=== PATIENT | male | born 1945 | race Caucasian/White ===

== ENCOUNTER 2016-09-09 07:32 | Outpatient (CLI) | payer MEDICARE, OTHER | END 2016-09-09 07:33 | disposition home or self-care (01) | DX: Z00.00 Encounter for general adult medical examination without abnormal findings (principal); I10 Essential (primary) hypertension; E78.5 Hyperlipidemia, unspecified; R97.20 Elevated prostate specific antigen [PSA] ==

== ENCOUNTER 2016-12-25 12:14 | Outpatient (CLI) | payer MEDICARE, OTHER | END 2016-12-25 12:15 | disposition home or self-care (01) | DX: M79.605 Pain in left leg (principal) ==

== ENCOUNTER 2017-03-01 08:24 | Outpatient (CLI) | payer MEDICARE, OTHER ==
[2017-03-01 13:34] LABS: ALBUMIN/GLOBULIN RATIO 1.2 (1.0-2.2); BILIRUBIN,TOTAL 0.7 mg/dL (0.2-1.0); BUN - BLOOD UREA NITROGEN 18 mg/dL (6-20); CALCIUM 9.4 mg/dL (8.5-10.3); CARBON DIOXIDE - CO2 23 mmol/L (21-32); CHLORIDE 105 mmol/L (101-111); CHOL/HDL RATIO 3.3 (<5.0); CHOLESTEROL 198 mg/dL; CREATININE 0.8 mg/dL (0.6-1.2); GFR - MDRD 96 (>89); GLUCOSE 110 mg/dL (70-100); HDL CHOLESTEROL 60 mg/dL; POTASSIUM 3.9 mmol/L (3.5-5.0); SODIUM 135 mmol/L (135-145); TOTAL PROTEIN 7.4 g/dL (6.7-8.2)
[2017-03-01 14:21] LABS: TRIGLYCERIDES 93 mg/dL; VLDL CHOLESTEROL 19 mg/dL
== END 2017-03-01 08:25 | disposition home or self-care (01) ==
LOC: LAB.WCP 08:24
PROVIDERS: ATTEND Family Medicine
DX: I10 Essential (primary) hypertension (principal); E78.5 Hyperlipidemia, unspecified; E01.0 Iodine-deficiency related diffuse (endemic) goiter; Z79.899 Other long term (current) drug therapy
CPT/HCPCS: 36415; 80053; 80061; 84443

== ENCOUNTER 2017-09-22 08:48 | Outpatient (CLI) | payer MEDICARE, OTHER ==
[2017-09-22 13:21] LABS: BASOPHILS % (AUTO) 0.5 %; EOSINOPHILS # (AUTO) 0.1 10^3/uL (0.0-0.7); EOSINOPHILS % (AUTO) 1.9 %; HGB - HEMOGLOBIN 14.5 g/dL (14.0-18.0); LYMPHOCYTES # (AUTO) 1.8 10^3/uL (1.5-3.5); LYMPHOCYTES % (AUTO) 39.5 %; MEAN CORPUSCULAR HEMOGLOBIN 30.6 pg (27.0-31.0); MEAN CORPUSCULAR HGB CONC 35.2 g/dL (32.0-36.0); MEAN CORPUSCULAR VOLUME 86.9 fL (80.0-94.0); MEAN PLATELET VOLUME 8.1 fL (7.4-11.4); MONOCYTES # (AUTO) 0.5 10^3/uL (0.0-1.0); MONOCYTES % (AUTO) 10.6 %; NEUTROPHILS # (AUTO) 2.2 10^3/uL (1.5-6.6); NEUTROPHILS % (AUTO) 47.5 %; PLT - PLATELET COUNT 237 10^3/uL (130-450); RED BLOOD COUNT 4.73 10^6/uL (4.70-6.10); RED CELL DISTRIBUTION WIDTH 12.8 % (12.0-15.0); WHITE BLOOD COUNT 4.6 x10^3/uL (4.8-10.8)
[2017-09-22 13:54] LABS: ALBUMIN/GLOBULIN RATIO 1.2 (1.0-2.2); ALKALINE PHOSPHATASE 65 IU/L (42-121); ALT ALANINE AMINOTRANSFERASE 26 IU/L (10-60); AST ASPARTATE AMINOTRANSFERASE 22 IU/L (10-42); BILIRUBIN,TOTAL 0.6 mg/dL (0.2-1.0); BUN - BLOOD UREA NITROGEN 20 mg/dL (6-20); CALCIUM 9.1 mg/dL (8.5-10.3); CARBON DIOXIDE - CO2 23 mmol/L (21-32); CHLORIDE 106 mmol/L (101-111); CHOL/HDL RATIO 3.8 (<5.0); CHOLESTEROL 173 mg/dL; CREATININE 0.8 mg/dL (0.6-1.2); GFR - MDRD 96 (>89); GLUCOSE 100 mg/dL (70-100); HDL CHOLESTEROL 45 mg/dL; LDL CHOLESTEROL,CALCULATED 108 mg/dL; LDL/HDL RATIO 2.4 (<3.6); SODIUM 133 mmol/L (135-145); TOTAL PROTEIN 7.3 g/dL (6.7-8.2); VLDL CHOLESTEROL 20 mg/dL
== END 2017-09-22 08:49 ==
LOC: LAB.WCP 08:48
PROVIDERS: ATTEND Family Medicine
DX: I10 Essential (primary) hypertension (principal); E78.5 Hyperlipidemia, unspecified; Z12.5 Encounter for screening for malignant neoplasm of prostate
CPT/HCPCS: 36415; 80053; 80061; 85025; G0103; 83721; 84153

== ENCOUNTER 2018-03-22 07:42 | Outpatient (CLI) | payer MEDICARE, OTHER ==
[2018-03-22 13:55] LABS: ALBUMIN 3.8 g/dL (3.2-5.5); ALBUMIN/GLOBULIN RATIO 1.2 (1.0-2.2); ALKALINE PHOSPHATASE 57 IU/L (42-121); ALT ALANINE AMINOTRANSFERASE 23 IU/L (10-60); AST ASPARTATE AMINOTRANSFERASE 23 IU/L (10-42); BILIRUBIN,TOTAL 0.6 mg/dL (0.2-1.0); BUN - BLOOD UREA NITROGEN 19 mg/dL (6-20); CALCIUM 9.3 mg/dL (8.5-10.3); CARBON DIOXIDE - CO2 26 mmol/L (21-32); CHLORIDE 104 mmol/L (101-111); CHOLESTEROL 187 mg/dL; CREATININE 0.8 mg/dL (0.6-1.2); GFR - MDRD 96 (>89); GLUCOSE 111 mg/dL (70-100); HDL CHOLESTEROL 62 mg/dL; LDL CHOLESTEROL,CALCULATED 107 mg/dL; LDL/HDL RATIO 1.7 (<3.6); SODIUM 136 mmol/L (135-145); TOTAL PROTEIN 6.9 g/dL (6.7-8.2); VLDL CHOLESTEROL 18 mg/dL
== END 2018-03-22 07:43 | disposition home or self-care (01) ==
LOC: LAB.WCP 07:42
PROVIDERS: ATTEND Family Medicine
DX: I10 Essential (primary) hypertension (principal); E78.5 Hyperlipidemia, unspecified; E01.0 Iodine-deficiency related diffuse (endemic) goiter
CPT/HCPCS: 36415; 80053; 80061; 83721; 84443

== ENCOUNTER 2020-12-16 09:07 | Outpatient (CLI) | payer MEDICARE, OTHER ==
--- NOTE | 2020-12-16 11:45 | XRAY Report ---
PROCEDURE: Foot 3 View BILAT INDICATIONS: BILAT FOOT PAIN TECHNIQUE: 3 views of the foot were acquired. COMPARISON: None FINDINGS: Bones: No fractures or dislocations. No suspicious bony lesions. Scattered IP degenerative narrowi ng is present bilaterally and relatively symmetric fashion. Most prominent narrowing is noted at the first MTP joint bilaterally. No areas of appreciable erosions are identified. Calcaneal spurs are pre sent bilaterally most prominent on the left. Soft tissues: No tibiotalar joint effusion. Achilles tendon appears normal. IMPRESSION: Degenerative changes most suggestive of arthritis. Reviewed by: Luciana Reed MD on 12/16/2020 11:44 AM PDT Approved by: Luciana Reed MD on 12/16/2020 11:44 AM PDT Station ID: [id number]
== END 2020-12-16 09:08 | disposition home or self-care (01) ==
LOC: DI 09:07
PROVIDERS: ATTEND Podiatrist
DX: M19.072 Primary osteoarthritis, left ankle and foot (principal); M19.071 Primary osteoarthritis, right ankle and foot

== ENCOUNTER 2024-04-18 10:30 | Outpatient (CLI) | payer MEDICARE | END 2024-04-18 23:59 | disposition short-term general hospital (02) | LOC: EMS 10:30 | DX: R55 Syncope and collapse (principal) | CPT/HCPCS: A0425; A0427; A0888 ==